=== PATIENT | female | born 1960 | race Caucasian/White ===

== ENCOUNTER → 2020-05-25 12:39 | Outpatient (CLI) | payer OTHER, SELFPAY ==
[2020-05-25] MEDS: COVID-19 VACC, Ad26(JANSSEN)/PF 0.5 ML IM (12:56)
== END ==
PROVIDERS: Visit Provider Internal Medicine
DX: Z23 Encounter for immunization (principal)
CPT/HCPCS: 0031A; 91303

== ENCOUNTER → 2020-08-05 10:58 | Outpatient (CLI) | payer OTHER, SELFPAY ==
--- NOTE | 2020-08-05 11:00 | DI.US.S_ITS ---
PROCEDURE: US PELVIC COMPLETE INDICATIONS: L Lower back/pelvic pain TECHNIQUE: Real-time scanning was performed of the pelvic organs, with image documentation. Additional endovaginal scanning was necessary due to incomplete visualization of the adnexal and endometrial structures by transabdominal scanning. COMPARISON: None. FINDINGS: Uterus: Prior hysterectomy. Ovaries: Normal ovaries measuring 2.0 x 0.8 x 1.4 cm on the right and 2.2 x 1.1 x 1.9 cm on the left. Other: No pathologic free abdominal or pelvic fluid. IMPRESSION: Limited exam demonstrating no source for pelvic pain. If pain persists with conservative management, consider pelvic CT or MRI. Dictated by: Wes ALMONTE Interpreted: Shellie Nuñez MD on 08/05/2020 at 14:21 Transcribed by: CHERI on 08/05/2020 at 14:22 Approved by: Shellie Nuñez M.D. on 08/05/2020 at 17:08
== END ==
PROVIDERS: PCP Specialist; Referring Provider Specialist; Visit Provider Specialist
DX: M54.5 Low back pain (principal); R10.2 Pelvic and perineal pain
CPT/HCPCS: 76830; 76856

== ENCOUNTER 2020-12-16 09:00 | Outpatient (RCR) | payer OTHER, SELFPAY ==
--- NOTE | 2020-10-13 15:44 | PT.OIE ---
Current Diagnoses Constipation, unspecified (10/13/20) Pain in left hip (10/13/20) Muscle weakness (generalized) (10/13/20) Other specified disorders of muscle (10/13/20) Pelvic and perineal pain (10/13/20) Past Surgical History Status post hysterectomy Visit Care Team Role Provider Type Maribell Seals MD Attending Provider Physician Family Provider Primary Care Provider Referring Provider Specialty: THERMOSTAT MAKER Address: [address] [place] [address], [id number] Email: [email or web address] Physical Therapy Initial Evaluation PT-OP-A Visit Information Start: 10/07/20 17:40 Freq: Status: Active Protocol: Document 10/13/20 08:12 LRN (Rec: 10/13/20 09:03 LRN [id number]) Out-Patient Physical Therapy Visit Information Visit Information Visit Type Initial Evaluation Visit Start Time 08:15 Visit Stop Time 09:01 Total Visit Minutes 46 Visit Number 1 Evaluation Information Evaluation Date 10/13/20 Precautions Precautions Per pt: Cancer history of R mastectomy with reconstructive surgery. Uterus removed PT-OP-B Current Condition Start: 10/07/20 17:40 Freq: Status: Active Protocol: Document 10/13/20 08:12 LRN (Rec: 10/13/20 09:03 LRN [id number]) Current Condition History of Current Condition Onset Date 06/2020 (4 months ago) Current Complaints Intermittent L LBP History of Current Condition Low L back pain and vaginal pain during sex, pain with deep thrust, and possibly some insertion. Pain in low back is intermittent, sometimes when bowels are full. 1 yr ago noticed pain with sex. No children 6 ectopic pregnancies. Exercises a couple times a week and random exercise. Prior Treatments and Tests None Developmental History Developmental History 6 ectopic pregnancies. 2018 -R Mastectomy, reconstruction in 2019 using adipose from lower abdomen, muscles not as strong. Treatment Goals Patient/Caregiver Goals Pt goal is sex without pain and stand all day at work and not have to sit down. 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 Sometimes had to sit to make it feel better. Current Functional Impairments (Reported) Functional Limitations- ADL's Sometimes had to sit at work due to LBP. Painful sex. Personal Factors Other Personal Factors That May Effect Per pt: Therapy/Recovery Cancer, R Mastectomy - 2018 with reconstructive surgery 2019. Uterus removed Hypothyroid controlled by medications. PT-OP-C Subjective Start: 10/07/20 17:40 Freq: Status: Active Protocol: Document 10/13/20 08:12 LRN (Rec: 10/13/20 09:03 LRN [id number]) Patient Questionnaires Pelvic Pain and Urgency/Frequency Patient Symptom Scale Pelvic Pain Score 14 OP-PT Pain Assessment Pain Assessment Grid Paper Pain Assessment Grid Completed Yes Location Pelvic Floor Pain Location Details Deep in vagina Intensity 3 Scale Used Numeric (0 - 10) Description Sharp Pain Duration During intercourse L LBP Pain Location Details LLB Intensity 3 Description Aching,Dull Frequency Intermittent Other Pain Alleviating Factors Sitting for a little bit PT-OP-F Manual Assessment Start: 10/07/20 17:40 Freq: Status: Active Protocol: Document 10/13/20 08:12 LRN (Rec: 10/13/20 09:03 LRN [id number]) Manual Assessments Soft Tissue Assessment Soft Tissue Mobility Assessment Decreased muscle tone of L gluteals Tender at L SIJ & L Sacral border. PT-OP-I Pelvic Floor Start: 10/07/20 17:40 Freq: Status: Active Protocol: Document 10/13/20 08:12 LRN (Rec: 10/13/20 09:03 LRN [id number]) Pelvic Floor Assessment Urine Pelvic Floor Surgery No Other Urinary Symptoms 8-10 times urinate per day Leaks Per Day None Bowel Bowel Surgery No Bowel Symptoms Constipation Other Bowel Symptoms If not taking probiotics have constipation. Bowel Movement Frequency 5-7x/week, from vacation didn' t have one for 5 days. [place] Stool Chart Type 1-7 4 Pelvic Clock Pelvic Clock 12-3 Tightness Pelvic Clock 3-6 Tightness PT-OP-J Posture/Palpation/Skin Start: 10/07/20 17:40 Freq: Status: Active Protocol: Document 10/13/20 08:12 LRN (Rec: 10/13/20 09:03 LRN [id number]) Posture Evaluation Position Standing T-Spine Posture Flattened Shoulder Posture (R) Elevated Pelvis Posture Anteriorly Tilted Weight Distribution Balanced Hip Posture (L) Neutral,(R) Neutral Ankle/Foot Posture (L) Neutral,(R) Neutral Foot Arch (L) Medium Arch,(R) Medium Arch Comments Posture Comments Decreased upper T/S curvature, outflare L ileum, level breasts. PT-OP-K Range of Motion Start: 10/07/20 17:40 Freq: Status: Active Protocol: Document 10/13/20 08:12 LRN (Rec: 10/13/20 09:03 LRN [id number]) Lumbar Spine Range of Motion Lumbar Spine Active Degrees Testing Position Standing Flexion 95 Extension 20 Rotation Left 50 Rotation Right 45 Lateral Flexion Left 15 Lateral Flexion Right 15 Comments Trunk flexion is with 70 deg's hip flexion Trunk ext is with 20 deg's hip extension Hip Goniometric Range of Motion Hip Right Passive Testing Position Supine Straight Leg Raise 100 Internal Rotation 60 External Rotation 50 Left Passive Testing Position Supine Straight Leg Raise 100 Internal Rotation 60 External Rotation 55 PT-OP-M Strength Start: 10/07/20 17:40 Freq: Status: Active Protocol: Document 10/13/20 08:12 LRN (Rec: 10/13/20 09:03 LRN [id number]) Trunk Strength Trunk Manual Muscle Testing Testing Position All positions during LE MMT Core Stabilization Weak R lateral trunk & R>L rotation. Hip Strength Hip Manual Muscle Testing Right Flexion (L2) 5 Normal Extension (S1) 5 Normal Abduction 5 Normal Adduction 3 Fair External Rotation 5 Normal Internal Rotation 5 Normal Left Flexion (L2) 5 Normal Extension (S1) 4 Good Abduction 5 Normal Adduction 5 Normal External Rotation 3 Fair Internal Rotation 5 Normal PT-OP-Q Treatments Start: 10/07/20 17:40 Freq: Status: Active Protocol: Document 10/13/20 08:12 LRN (Rec: 10/13/20 09:03 LRN [id number]) Self-Care/Home Management Treatment Education Patient Education Home Exercise Program Other Education Discussed results of evaluation, goals, and plan of care (POC). Pt agreeable to goals and POC. Issued, discussed, & reviewed Bladder Diary for pt to complete over the next 7 days. Explained how to fill out diary to include bowel movements. Activities Self-Care/Home Management Activities I/S pt in JUDY stretch. PT-OP-T Assessment and Plan Start: 10/07/20 17:40 Freq: Status: Active Protocol: Document 10/13/20 08:12 LRN (Rec: 10/13/20 09:03 N [id number]) Physical Therapy Assessment Rehab Potential Rehabilitation Potential Excellent Evaluation Complexity Number of Personal Factors/Comorbidities 1-2 Number of Body Systems Impaired 4 or More Clinical Presentation at Evaluation Evolving Impairments Impairments Activity Tolerance,Pain,ROM, Soft Tissue Mobility Goals Four Impairment Pain with intercourse. Short Term Goal (STG) Normalize soft tissue mobility of L abdominal region & improve trunk flexor mobility with pt independent on a self care stretch program and educated in modifications to positioning to minimize pain. STG Duration 12/02/20 Modern Languages Professor Goal (LTG) No pain with sexual intercourse. LTG Duration 01/11/21 Three Impairment Decreased hip strength (ER: 3/ 5 L, 5/5 R; Adduction 5/5 L, 3 /5 R) Short Term Goal (STG) Hip strength is generally 5/5 bilaterally STG Duration 12/02/20 Shelter Goal (LTG) Improved L hip/SIJ stability with decrease of L hip pain no greater than 1/10. LTG Duration 01/11/21 Two Impairment Intermittent L LBP/SIJ pain with prolonged standing (rated 3/10) Impairment Initial hip mobility: ER is 55 deg's left, 50 deg's right; IR 60 deg's bilaterally. Short Term Goal (STG) Pt will demonstrate improved hip ER mobility. STG Duration 12/02/20 Shelter Goal (LTG) Pt will be able to stand for long periods (like at work) and not have to sit down due to pain. LTG Duration 01/11/21 One Impairment Pt lacks an independent self care HEP. Short Term Goal (STG) Pt will be educated in self bowel massage. STG Duration 10/28/20 Shelter Goal (LTG) Pt will be independent in a self care HEP. LTG Duration 01/11/21 Assessment Summary Assessment Pt presents with no significant pain in superifical or deep PF muscles . She has pain at the L Obturator Internus on internal palpation and has tenderness and tightness on external palpation of her hip external rotators as well as at the L Sacral border and SIJ associated with her L LBP. Additionally, since her LBP is intermittent and noteable when she has constipation, her bowel function is probably involved. Her complaints of pelvic floor pain is with deep thrust during sexual intercourse, therefore possibly due to fascial pain at end of vaginal canal, as possible from her history of removal of her uterus. She also has abdominal fascial restrictions mainly on the left side of her upper and lower quadrant that may be contibuting to this pain. The pt will benefit from skilled physical therapy to improve soft tissue restrictions of the left low back, hip (OI) and abdomen ( upper and lower quadrant, L>R) in order to achieve above stated goals. Improvement in bowel function may also need to be addressed. Physical Therapy Plan Frequency and Duration Frequency of Treatment 1x/Week Plan of Care Start Date 10/13/20 Plan of Care End Date 01/11/21 Therapeutic Interventions Therapeutic Interventions Home Exercise Program,Joint Mobilizations,Manual Therapy, Neuromuscular Re-education, Patient/Caregiver Education, Self-Care/Home Management,Soft Tissue Mobilization, Therapeutic Activities, Therapeutic Exercises Modalities Cold Pack/Ice Massage,Hot Packs Next Visit Focus/Plan Next Note Type Treatment Note Next Visit Plan Assess bowel/bladder diary and make recommendations as appropriate. Review stretch to abdomen ( sphinx & progress to upward dog) and issue HEP. Initiate self care HEP of hip stretch (rotation L>R, gluts, piriformis), deep breathing and bowel massage. STM of abdomen, fascia of bladder, intestines. Discuss positioning for intercourse to minimize pain.
--- NOTE | 2020-10-14 15:42 | PT.OIE ---
Current Diagnoses Constipation, unspecified (10/13/20) Pain in left hip (10/13/20) Muscle weakness (generalized) (10/13/20) Other specified disorders of muscle (10/13/20) Pelvic and perineal pain (10/13/20) Past Surgical History Status post hysterectomy Visit Care Team Role Provider Type Maribell Seals MD Attending Provider Physician Family Provider Primary Care Provider Referring Provider Specialty: PM TECHNICIAN Address: [address] [place] [address], [address] Email: [email or web address] Physical Therapy Initial Evaluation PT-OP-A Visit Information Start: 10/07/20 17:40 Freq: Status: Active Protocol: Document 10/13/20 08:12 LRN (Rec: 10/13/20 09:03 LRN [id number]) Out-Patient Physical Therapy Visit Information Visit Information Visit Type Initial Evaluation Visit Start Time 08:15 Visit Stop Time 09:01 Total Visit Minutes 46 Visit Number 1 Evaluation Information Evaluation Date 10/13/20 Precautions Precautions Per pt: Cancer history of R mastectomy with reconstructive surgery. Uterus removed PT-OP-B Current Condition Start: 10/07/20 17:40 Freq: Status: Active Protocol: Document 10/13/20 08:12 LRN (Rec: 10/13/20 09:03 LRN [id number]) Current Condition History of Current Condition Onset Date 06/2020 (4 months ago) Current Complaints Intermittent L LBP History of Current Condition Low L back pain and vaginal pain during sex, pain with deep thrust, and possibly some insertion. Pain in low back is intermittent, sometimes when bowels are full. 1 yr ago noticed pain with sex. No children 6 ectopic pregnancies. Exercises a couple times a week and random exercise. Prior Treatments and Tests None Developmental History Developmental History 6 ectopic pregnancies. 2018 -R Mastectomy, reconstruction in 2019 using adipose from lower abdomen, muscles not as strong. Treatment Goals Patient/Caregiver Goals Pt goal is sex without pain and stand all day at work and not have to sit down. 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 Current Functional Impairments (Reported) Functional Limitations- ADL's Sometimes had to sit at work due to LBP. Painful sex. Personal Factors Other Personal Factors That May Effect Per pt: Therapy/Recovery Cancer, R Mastectomy - 2018 with reconstructive surgery 2019. Uterus removed Hypothyroid controlled by medications. PT-OP-C Subjective Start: 10/07/20 17:40 Freq: Status: Active Protocol: Document 10/13/20 08:12 LRN (Rec: 10/13/20 09:03 LRN [id number]) Patient Questionnaires Pelvic Pain and Urgency/Frequency Patient Symptom Scale Pelvic Pain Score 14 OP-PT Pain Assessment Pain Assessment Grid Paper Pain Assessment Grid Completed Yes Location Pelvic Floor Pain Location Details Deep in vagina Intensity 3 Scale Used Numeric (0 - 10) Description Sharp Pain Duration During intercourse L LBP Pain Location Details LLB Intensity 3 Description Aching,Dull Frequency Intermittent Other Pain Alleviating Factors Sitting for a little bit PT-OP-F Manual Assessment Start: 10/07/20 17:40 Freq: Status: Active Protocol: Document 10/13/20 08:12 LRN (Rec: 10/13/20 09:03 LRN [id number]) Manual Assessments Soft Tissue Assessment Soft Tissue Mobility Assessment Decreased muscle tone of L gluteals Tender at L SIJ & L Sacral border. PT-OP-I Pelvic Floor Start: 10/07/20 17:40 Freq: Status: Active Protocol: Document 10/13/20 08:12 LRN (Rec: 10/13/20 09:03 LRN [id number]) Pelvic Floor Assessment Urine Pelvic Floor Surgery No Other Urinary Symptoms 8-10 times urinate per day [place] Per Day None Bowel Bowel Surgery No Bowel Symptoms Constipation Other Bowel Symptoms If not taking probiotics have constipation. Bowel Movement Frequency 5-7x/week, from vacation didn' t have one for 5 days. [place] Stool Chart Type 1-7 4 Pelvic Clock Pelvic Clock 12-3 Tightness Pelvic Clock 3-6 Tightness PT-OP-J Posture/Palpation/Skin Start: 10/07/20 17:40 Freq: Status: Active Protocol: Document 10/13/20 08:12 LRN (Rec: 10/13/20 09:03 LRN [id number]) Posture Evaluation Position Standing T-Spine Posture Flattened Shoulder Posture (R) Elevated Pelvis Posture Anteriorly Tilted Weight Distribution Balanced Hip Posture (L) Neutral,(R) Neutral Ankle/Foot Posture (L) Neutral,(R) Neutral Foot Arch (L) Medium Arch,(R) Medium Arch Comments Posture Comments Decreased upper T/S curvature, outflare L ileum, level breasts. PT-OP-K Range of Motion Start: 10/07/20 17:40 Freq: Status: Active Protocol: Document 10/13/20 08:12 LRN (Rec: 10/13/20 09:03 LRN [id number]) Lumbar Spine Range of Motion Lumbar Spine Active Degrees Testing Position Standing Flexion 95 Extension 20 Rotation Left 50 Rotation Right 45 Lateral Flexion Left 15 Lateral Flexion Right 15 Comments Trunk flexion is with 70 deg's hip flexion Trunk ext is with 20 deg's hip extension Hip Goniometric Range of Motion Hip Right Passive Testing Position Supine Straight Leg Raise 100 Internal Rotation 60 External Rotation 50 Left Passive Testing Position Supine Straight Leg Raise 100 Internal Rotation 60 External Rotation 55 PT-OP-M Strength Start: 10/07/20 17:40 Freq: Status: Active Protocol: Document 10/13/20 08:12 LRN (Rec: 10/13/20 09:03 LRN [id number]) Trunk Strength Trunk Manual Muscle Testing Testing Position All positions during LE MMT Core Stabilization Weak R lateral trunk & R>L rotation. Hip Strength Hip Manual Muscle Testing Right Flexion (L2) 5 Normal Extension (S1) 5 Normal Abduction 5 Normal Adduction 3 Fair External Rotation 5 Normal Internal Rotation 5 Normal Left Flexion (L2) 5 Normal Extension (S1) 4 Good Abduction 5 Normal Adduction 5 Normal External Rotation 3 Fair Internal Rotation 5 Normal PT-OP-Q Treatments Start: 10/07/20 17:40 Freq: Status: Active Protocol: Document 10/13/20 08:12 LRN (Rec: 10/13/20 09:03 LRN [id number]) Self-Care/Home Management Treatment Education Patient Education Home Exercise Program Other Education Discussed results of evaluation, goals, and plan of care (POC). Pt agreeable to goals and POC. Issued, discussed, & reviewed Bladder Diary for pt to complete over the next 7 days. Explained how to fill out diary to include bowel movements. Activities Self-Care/Home Management Activities I/S pt in JUDY stretch. PT-OP-T Assessment and Plan Start: 10/07/20 17:40 Freq: Status: Active Protocol: Document 10/13/20 08:12 LRN (Rec: 10/13/20 09:03 N [id number]) Physical Therapy Assessment Rehab Potential Rehabilitation Potential Excellent Evaluation Complexity Number of Personal Factors/Comorbidities 1-2 Number of Body Systems Impaired 4 or More Clinical Presentation at Evaluation Evolving Impairments Impairments Activity Tolerance,Pain,ROM, Soft Tissue Mobility Goals Four Impairment Pain with intercourse. Short Term Goal (STG) Normalize soft tissue mobility of L abdominal region & improve trunk flexor mobility with pt independent on a self care stretch program and educated in modifications to positioning to minimize pain. STG Duration 12/02/20 Survey Associate Goal (LTG) No pain with sexual intercourse. LTG Duration 01/11/21 Three Impairment Decreased hip strength (ER: 3/ 5 L, 5/5 R; Adduction 5/5 L, 3 /5 R) Short Term Goal (STG) Hip strength is generally 5/5 bilaterally STG Duration 12/02/20 Group Home Goal (LTG) Improved L hip/SIJ stability with decrease of L hip pain no greater than 1/10. LTG Duration 01/11/21 Two Impairment Intermittent L LBP/SIJ pain with prolonged standing (rated 3/10) Impairment Initial hip mobility: ER is 55 deg's left, 50 deg's right; IR 60 deg's bilaterally. Short Term Goal (STG) Pt will demonstrate improved hip ER mobility. STG Duration 12/02/20 Group Home Goal (LTG) Pt will be able to stand for long periods (like at work) and not have to sit down due to pain. LTG Duration 01/11/21 One Impairment Pt lacks an independent self care HEP. Short Term Goal (STG) Pt will be educated in self bowel massage. STG Duration 10/28/20 Group Home Goal (LTG) Pt will be independent in a self care HEP. LTG Duration 01/11/21 Assessment Summary Assessment Pt presents with no significant pain in superifical or deep PF muscles . She has pain at the L Obturator Internus on internal palpation and has tenderness and tightness on external palpation of her hip external rotators as well as at the L Sacral border and SIJ associated with her L LBP. Additionally, since her LBP is intermittent and noteable when she has constipation, her bowel function is probably involved. Her complaints of pelvic floor pain is with deep thrust during sexual intercourse, therefore possibly due to fascial pain at end of vaginal canal, as possible from her history of removal of her uterus. She also has abdominal fascial restrictions mainly on the left side of her upper and lower quadrant that may be contibuting to this pain. The pt will benefit from skilled physical therapy to improve soft tissue restrictions of the left low back, hip (OI) and abdomen ( upper and lower quadrant, L>R) in order to achieve above stated goals. Improvement in bowel function may also need to be addressed. Physical Therapy Plan Frequency and Duration Frequency of Treatment 1x/Week Plan of Care Start Date 10/13/20 Plan of Care End Date 01/11/21 Therapeutic Interventions Therapeutic Interventions Home Exercise Program,Joint Mobilizations,Manual Therapy, Neuromuscular Re-education, Patient/Caregiver Education, Self-Care/Home Management,Soft Tissue Mobilization, Therapeutic Activities, Therapeutic Exercises Modalities Cold Pack/Ice Massage,Hot Packs Next Visit Focus/Plan Next Note Type Treatment Note Next Visit Plan Assess bowel/bladder diary and make recommendations as appropriate. Review stretch to abdomen ( sphinx & progress to upward dog) and issue HEP. Initiate self care HEP of hip stretch (rotation L>R, gluts, piriformis), deep breathing and bowel massage. STM of abdomen, fascia of bladder, intestines. Discuss positioning for intercourse to minimize pain.
--- NOTE | 2020-10-20 15:58 | PT.OTN ---
Current Diagnoses Constipation, unspecified (10/20/20) Pain in left hip (10/20/20) Muscle weakness (generalized) (10/20/20) Other specified disorders of muscle (10/20/20) Pelvic and perineal pain (10/20/20) Physical Therapy Treatment Note PT-OP-A Visit Information Start: 10/07/20 17:40 Freq: Status: Active Protocol: Document 10/20/20 08:19 LRN (Rec: 10/20/20 09:05 LRN [id number]) Out-Patient Physical Therapy Visit Information Visit Information Visit Type Treatment Note Visit Start Time 08:19 Visit Stop Time 08:59 Total Visit Minutes 40 Visit Number 2 Evaluation Information Evaluation Date 10/13/20 Precautions Precautions Per pt: Cancer history of R mastectomy with reconstructive surgery. Uterus removed PT-OP-B Current Condition Start: 10/07/20 17:40 Freq: Status: Active Protocol: Document 10/13/20 08:12 LRN (Rec: 10/13/20 09:03 LRN [id number]) Current Condition History of Current Condition Onset Date 06/2020 (4 months ago) Current Complaints Intermittent L LBP History of Current Condition Low L back pain and vaginal pain during sex, pain with deep thrust, and possibly some insertion. Pain in low back is intermittent, sometimes when bowels are full. 1 yr ago noticed pain with sex. No children 6 ectopic pregnancies. Exercises a couple times a week and random exercise. Prior Treatments and Tests None Developmental History Developmental History 6 ectopic pregnancies. 2018 -R Mastectomy, reconstruction in 2019 using adipose from lower abdomen, muscles not as strong. Treatment Goals Patient/Caregiver Goals Pt goal is sex without pain and stand all day at work and not have to sit down. 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 Sometimes had to sit to make it feel better. Current Functional Impairments (Reported) Functional Limitations- ADL's Sometimes had to sit at work due to LBP. Painful sex. Personal Factors Other Personal Factors That May Effect Per pt: Therapy/Recovery Cancer, R Mastectomy - 2018 with reconstructive surgery 2019. Uterus removed Hypothyroid controlled by medications. PT-OP-C Subjective Start: 10/07/20 17:40 Freq: Status: Active Protocol: Document 10/20/20 08:19 LRN (Rec: 10/20/20 09:05 LRN [id number]) OP-PT Subjective Patient Comments Patient Comments Did bladder diary. No pain today. Had sex 2 days ago and was uncomfortable. States one day her lower back was really bother her. States now she is back to a normal routine after her trip. PT-OP-F Manual Assessment Start: 10/07/20 17:40 Freq: Status: Active Protocol: Document 10/13/20 08:12 LRN (Rec: 10/13/20 09:03 LRN [id number]) Manual Assessments Soft Tissue Assessment Soft Tissue Mobility Assessment Decreased muscle tone of L gluteals Tender at L SIJ & L Sacral border. PT-OP-I Pelvic Floor Start: 10/07/20 17:40 Freq: Status: Active Protocol: Document 10/13/20 08:12 LRN (Rec: 10/13/20 09:03 LRN [id number]) Pelvic Floor Assessment Urine Pelvic Floor Surgery No Other Urinary Symptoms 8-10 times urinate per day Leaks Per Day None Bowel Bowel Surgery No Bowel Symptoms Constipation Other Bowel Symptoms If not taking probiotics have constipation. Bowel Movement Frequency 5-7x/week, from vacation didn' t have one for 5 days. [place] Stool Chart Type 1-7 4 Pelvic Clock Pelvic Clock 12-3 Tightness Pelvic Clock 3-6 Tightness PT-OP-J Posture/Palpation/Skin Start: 10/07/20 17:40 Freq: Status: Active Protocol: Document 10/13/20 08:12 LRN (Rec: 10/13/20 09:03 LRN [id number]) Posture Evaluation Position Standing T-Spine Posture Flattened Shoulder Posture (R) Elevated Pelvis Posture Anteriorly Tilted Weight Distribution Balanced Hip Posture (L) Neutral,(R) Neutral Ankle/Foot Posture (L) Neutral,(R) Neutral Foot Arch (L) Medium Arch,(R) Medium Arch Comments Posture Comments Decreased upper T/S curvature, outflare L ileum, level breasts. PT-OP-K Range of Motion Start: 10/07/20 17:40 Freq: Status: Active Protocol: Document 10/13/20 08:12 LRN (Rec: 10/13/20 09:03 LRN [id number]) Lumbar Spine Range of Motion Lumbar Spine Active Degrees Testing Position Standing Flexion 95 Extension 20 Rotation Left 50 Rotation Right 45 Lateral Flexion Left 15 Lateral Flexion Right 15 Comments Trunk flexion is with 70 deg's hip flexion Trunk ext is with 20 deg's hip extension Hip Goniometric Range of Motion Hip Right Passive Testing Position Supine Straight Leg Raise 100 Internal Rotation 60 External Rotation 50 Left Passive Testing Position Supine Straight Leg Raise 100 Internal Rotation 60 External Rotation 55 PT-OP-M Strength Start: 10/07/20 17:40 Freq: Status: Active Protocol: Document 10/13/20 08:12 LRN (Rec: 10/13/20 09:03 LRN [id number]) Trunk Strength Trunk Manual Muscle Testing Testing Position All positions during LE MMT Core Stabilization Weak R lateral trunk & R>L rotation. Hip Strength Hip Manual Muscle Testing Right Flexion (L2) 5 Normal Extension (S1) 5 Normal Abduction 5 Normal Adduction 3 Fair External Rotation 5 Normal Internal Rotation 5 Normal Left Flexion (L2) 5 Normal Extension (S1) 4 Good Abduction 5 Normal Adduction 5 Normal External Rotation 3 Fair Internal Rotation 5 Normal PT-OP-Q Treatments Start: 10/07/20 17:40 Freq: Status: Active Protocol: Document 10/20/20 08:19 LRN (Rec: 10/20/20 09:05 LRN [id number]) Therapeutic Exercises Supine Exercises KTC stretch Supine Exercise Name KTC stretch Side bilateral Reps/Minutes 60 stretch Hip ER stretch Supine Exercise Name Lateral hip stretch Side bilateral Reps/Minutes 60 stretch: 2x left, 1x right Comments Extra time needed for training with Physical & v cuing. Piriformis stretch Supine Exercise Name Knee to opposite shoulder & pt also shown cross over leg stretch. Side bilateral Reps/Minutes 60 stretch: 2x left, 1x right Comments Extra time needed for training with Physical & v cuing. Prone Exercises Abdominal stretch Prone Exercise Name JUDY Reps/Minutes 60 x 2 Sitting Exercises Piriformis stretch Sitting Exercise Name Piriformis stretch Side bilateral Reps/Minutes 60 stretch: 2x left, 1x right Manual Therapy Treatment Soft Tissue Mobilization Abdomen Body Location Abdomen/Bladder region Mobilization Type Sustained Pressure Intensity/Depth Moderate Body Position Supine Comments Decreased tissue mobility of abdomen with L>R. No c/o of tenderness at L SIJ. Self-Care/Home Management Treatment Education Other Education Reviewed and discussed results of bladder diary. Discussed & educated pt in sexual intercourse positioning for best cervix/bladder positioning. Activities Self-Care/Home Management Activities Issued & reviewed HEP: Piriformis stretch (2 ways - knee to opposite shoulder and cross legged knee to chest), Lateral hip stretch, sitting crossing ankle over knee, SKTC , JUDY) PT-OP-T Assessment and Plan Start: 10/07/20 17:40 Freq: Status: Active Protocol: Document 10/20/20 08:19 LRN (Rec: 10/20/20 09:05 LRN [id number]) Physical Therapy Assessment Goals Four Impairment Pain with intercourse. Short Term Goal (STG) Normalize soft tissue mobility of L abdominal region & improve trunk flexor mobility with pt independent on a self care stretch program and educated in modifications to positioning to minimize pain. (10/20/20: Pt educated in modifications to positioning to minimize pain, and started on HEP of abdominal and trunk flexor mobility ex's) STG Duration 12/02/20 (10/20/20: Progressing towards norm STM, HEP issued, pt educated) Supervisor [employer] Shop Goal (LTG) No pain with sexual intercourse. LTG Duration 01/11/21 Three Impairment Decreased hip strength (ER: 3/ 5 L, 5/5 R; Adduction 5/5 L, 3 /5 R) Short Term Goal (STG) Hip strength is generally 5/5 bilaterally STG Duration 12/02/20 Supervisor [employer] Shop Goal (LTG) Improved L hip/SIJ stability with decrease of L hip pain no greater than 1/10. LTG Duration 01/11/21 Two Impairment Intermittent L LBP/SIJ pain with prolonged standing (rated 3/10) Impairment Initial hip mobility: ER is 55 deg's left, 50 deg's right; IR 60 deg's bilaterally. Short Term Goal (STG) Pt will demonstrate improved hip ER mobility. STG Duration 12/02/20 Supervisor [employer] Shop Goal (LTG) Pt will be able to stand for long periods (like at work) and not have to sit down due to pain. LTG Duration 01/11/21 One Impairment Pt lacks an independent self care HEP. Short Term Goal (STG) Pt will be educated in self bowel massage. STG Duration 10/28/20 Supervisor Core Shop Goal (LTG) Pt will be independent in a self care HEP. LTG Duration 01/11/21 (10/20/20: Progressed ) Progress Towards Goals Progress Comments Progressed HEP. Assessment Summary Assessment Pt is very tight in abdominal region contributing to interabdominal pressure with ex causing drop of organs and pain with intercourse (on thrust). SIJ and lateral sacral border pain with prolonged sitting may be associated to tightness of OI/ hip ER's/rectus abdominus. She has fascial restrictions from previous surgery for mastectomy (adipose taken from lower abdomen). Pt may be improperly exercising causing valsalva type pressure in abdomen during exercise. Physical Therapy Plan Frequency and Duration Frequency of Treatment 1x/Week Plan of Care Start Date 10/13/20 Plan of Care End Date 01/11/21 Next Visit Focus/Plan Next Note Type Treatment Note Next Visit Plan After 2 weeks of pt on HEP, assess positioning, drop of organs, causing end thrust pain with intercourse. Add trunk rot stretch and lower abdominal ex, review planks. Progress to upward dog abdominal stretch (modify HEP if needed). Review self care HEP of hip stretch (rotation L>R, gluts, piriformis), deep breathing Add bowel massage. STM of abdomen, fascia of bladder, intestines. LB/SIJ/Pelvic stabilization.
--- NOTE | 2020-11-03 17:18 | PT.OTN ---
Current Diagnoses Constipation, unspecified (11/03/20) Pain in left hip (11/03/20) Muscle weakness (generalized) (11/03/20) Other specified disorders of muscle (11/03/20) Pelvic and perineal pain (11/03/20) Physical Therapy Treatment Note PT-OP-A Visit Information Start: 10/07/20 17:40 Freq: Status: Active Protocol: Document 11/03/20 09:54 LRN (Rec: 11/03/20 10:37 LRN [id number]) Out-Patient Physical Therapy Visit Information Visit Information Visit Type Treatment Note Visit Start Time 09:54 Visit Stop Time 10:34 Total Visit Minutes 40 Visit Number 3 Evaluation Information Evaluation Date 10/13/20 Precautions Precautions Per pt: Cancer history of R mastectomy with reconstructive surgery. Uterus removed PT-OP-B Current Condition Start: 10/07/20 17:40 Freq: Status: Active Protocol: Document 10/13/20 08:12 LRN (Rec: 10/13/20 09:03 LRN [id number]) Current Condition History of Current Condition Onset Date 06/2020 (4 months ago) Current Complaints Intermittent L LBP History of Current Condition Low L back pain and vaginal pain during sex, pain with deep thrust, and possibly some insertion. Pain in low back is intermittent, sometimes when bowels are full. 1 yr ago noticed pain with sex. No children 6 ectopic pregnancies. Exercises a couple times a week and random exercise. Prior Treatments and Tests None Developmental History Developmental History 6 ectopic pregnancies. 2018 -R Mastectomy, reconstruction in 2019 using adipose from lower abdomen, muscles not as strong. Treatment Goals Patient/Caregiver Goals Pt goal is sex without pain and stand all day at work and not have to sit down. 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 Current Functional Impairments (Reported) Functional Limitations- ADL's Sometimes had to sit at work due to LBP. Painful sex. Personal Factors Other Personal Factors That May Effect Per pt: Therapy/Recovery Cancer, R Mastectomy - 2018 with reconstructive surgery 2019. Uterus removed Hypothyroid controlled by medications. PT-OP-C Subjective Start: 10/07/20 17:40 Freq: Status: Active Protocol: Document 11/03/20 09:54 LRN (Rec: 11/03/20 10:37 LRN [id number]) OP-PT Subjective Patient Comments Patient Comments Haven't felt the pain in L LB for awhile but feeling it this morning. PT-OP-F Manual Assessment Start: 10/07/20 17:40 Freq: Status: Active Protocol: Document 10/13/20 08:12 LRN (Rec: 10/13/20 09:03 LRN [id number]) Manual Assessments Soft Tissue Assessment Soft Tissue Mobility Assessment Decreased muscle tone of L gluteals Tender at L SIJ & L Sacral border. PT-OP-I Pelvic Floor Start: 10/07/20 17:40 Freq: Status: Active Protocol: Document 10/13/20 08:12 LRN (Rec: 10/13/20 09:03 LRN [id number]) Pelvic Floor Assessment Urine Pelvic Floor Surgery No Other Urinary Symptoms 8-10 times urinate per day Leaks Per Day None Bowel Bowel Surgery No Bowel Symptoms Constipation Other Bowel Symptoms If not taking probiotics have constipation. Bowel Movement Frequency 5-7x/week, from vacation didn' t have one for 5 days. [place] Stool Chart Type 1-7 4 Pelvic Clock Pelvic Clock 12-3 Tightness Pelvic Clock 3-6 Tightness PT-OP-J Posture/Palpation/Skin Start: 10/07/20 17:40 Freq: Status: Active Protocol: Document 10/13/20 08:12 LRN (Rec: 10/13/20 09:03 LRN [id number]) Posture Evaluation Position Standing T-Spine Posture Flattened Shoulder Posture (R) Elevated Pelvis Posture Anteriorly Tilted Weight Distribution Balanced Hip Posture (L) Neutral,(R) Neutral Ankle/Foot Posture (L) Neutral,(R) Neutral Foot Arch (L) Medium Arch,(R) Medium Arch Comments Posture Comments Decreased upper T/S curvature, outflare L ileum, level breasts. PT-OP-K Range of Motion Start: 10/07/20 17:40 Freq: Status: Active Protocol: Document 10/13/20 08:12 LRN (Rec: 10/13/20 09:03 LRN [id number]) Lumbar Spine Range of Motion Lumbar Spine Active Degrees Testing Position Standing Flexion 95 Extension 20 Rotation Left 50 Rotation Right 45 Lateral Flexion Left 15 Lateral Flexion Right 15 Comments Trunk flexion is with 70 deg's hip flexion Trunk ext is with 20 deg's hip extension Hip Goniometric Range of Motion Hip Right Passive Testing Position Supine Straight Leg Raise 100 Internal Rotation 60 External Rotation 50 Left Passive Testing Position Supine Straight Leg Raise 100 Internal Rotation 60 External Rotation 55 PT-OP-M Strength Start: 10/07/20 17:40 Freq: Status: Active Protocol: Document 10/13/20 08:12 LRN (Rec: 10/13/20 09:03 LRN [id number]) Trunk Strength Trunk Manual Muscle Testing Testing Position All positions during LE MMT Core Stabilization Weak R lateral trunk & R>L rotation. Hip Strength Hip Manual Muscle Testing Right Flexion (L2) 5 Normal Extension (S1) 5 Normal Abduction 5 Normal Adduction 3 Fair External Rotation 5 Normal Internal Rotation 5 Normal Left Flexion (L2) 5 Normal Extension (S1) 4 Good Abduction 5 Normal Adduction 5 Normal External Rotation 3 Fair Internal Rotation 5 Normal PT-OP-Q Treatments Start: 10/07/20 17:40 Freq: Status: Active Protocol: Document 11/03/20 09:54 LRN (Rec: 11/03/20 10:37 LRN [id number]) Therapeutic Exercises Supine Exercises Self R oblique manual stretch Supine Exercise Name Self manual Oblique stretch Side right Manual Therapy Treatment Soft Tissue Mobilization PSIS/Ischial tub Body Location L SIJ/PSIS/Ischial Tuberosity Mobilization Type Myofascial Release,Sustained Pressure Intensity/Depth Moderate Body Position Supine & Prone Sacrum Body Location R Sacral Sulcus, R Sacral border, YOLANDA Mobilization Type Myofascial Release,Sustained Pressure Intensity/Depth Moderate Body Position Supine & Prone Abdomen Body Location Abdomen/Bladder region and R Oblique stretching Mobilization Type Myofascial Release,Sustained Pressure Intensity/Depth Moderate Body Position Supine Comments Decreased tissue mobility of abdomen with L>R. No c/o of tenderness at L SIJ. Self-Care/Home Management Treatment Activities Self-Care/Home Management Activities I/S in self manual oblique stretch with focus on R side PT-OP-T Assessment and Plan Start: 10/07/20 17:40 Freq: Status: Active Protocol: Document 11/03/20 09:54 LRN (Rec: 11/03/20 10:37 LRN [id number]) Physical Therapy Assessment Goals Four Impairment Pain with intercourse. Short Term Goal (STG) Normalize soft tissue mobility of L abdominal region & improve trunk flexor mobility with pt independent on a self care stretch program and educated in modifications to positioning to minimize pain. (10/20/20: Pt educated in modifications to positioning to minimize pain, and started on HEP of abdominal and trunk flexor mobility ex's) (11/03/20: HEP: self trunk rotation manual stretch) STG Duration 12/02/20 (11/03/20: Progressing towards norm STM) Fdc Goal (LTG) No pain with sexual intercourse. LTG Duration 01/11/21 Three Impairment Decreased hip strength (ER: 3/ 5 L, 5/5 R; Adduction 5/5 L, 3 /5 R) Short Term Goal (STG) Hip strength is generally 5/5 bilaterally STG Duration 12/02/20 Accounting Clerk Goal (LTG) Improved L hip/SIJ stability with decrease of L hip pain no greater than 1/10. LTG Duration 01/11/21 Two Impairment Intermittent L LBP/SIJ pain with prolonged standing (rated 3/10) Impairment Initial hip mobility: ER is 55 deg's left, 50 deg's right; IR 60 deg's bilaterally. Short Term Goal (STG) Pt will demonstrate improved hip ER mobility. STG Duration 12/02/20 Accounting Clerk Goal (LTG) Pt will be able to stand for long periods (like at work) and not have to sit down due to pain. LTG Duration 01/11/21 One Impairment Pt lacks an independent self care HEP. Short Term Goal (STG) Pt will be educated in self bowel massage. STG Duration 10/28/20 Fdc Goal (LTG) Pt will be independent in a self care HEP. LTG Duration 01/11/21 (11/03/20: Progressed) Progress Towards Goals Progress Comments Progressed HEP No L LBP after treatment. Assessment Summary Assessment Sacrum is in R rotation; decreased mobility of R Sacral sulcus (PA) and R sacral border (inferior), sacrum to the R (not common pattern). Decreased mobility of abdominal plasty scar and R obliques. After mobilization of Sacrum, pelvis, scar, obliques the pt reported no L LBP. Physical Therapy Plan Frequency and Duration Frequency of Treatment 1x/Week Plan of Care Start Date 10/13/20 Plan of Care End Date 01/11/21 Next Visit Focus/Plan Next Note Type Treatment Note Next Visit Plan Recheck Sacrum (2 step correction) & Ischium/Ilium rebalancing. Intravaginal Protocol & lower abdominal techniques. Assess PFM, Bladder, Cervix for drop of organs, causing end thrust pain with intercourse. PFM w/ pelvic bones externally & EAS, review self care scar and oblique mobs. Core activation (lower abdominal ex, review planks). Add trunk ?R rot active stretch. Progress to upward dog abdominal stretch (modify HEP if needed). Review self care HEP of hip stretch (rotation L>R, gluts, piriformis), deep breathing Add bowel massage. STM of abdomen, fascia of bladder, intestines. LB/SIJ/Pelvic stabilization, review planks.
--- NOTE | 2020-11-10 17:07 | PT.OTN ---
Current Diagnoses Constipation, unspecified (11/10/20) Pain in left hip (11/10/20) Muscle weakness (generalized) (11/10/20) Other specified disorders of muscle (11/10/20) Pelvic and perineal pain (11/10/20) Physical Therapy Treatment Note PT-OP-A Visit Information Start: 10/07/20 17:40 Freq: Status: Active Protocol: Document 11/10/20 08:09 LRN (Rec: 11/10/20 09:06 LRN [id number]) Out-Patient Physical Therapy Visit Information Visit Information Visit Type Treatment Note Visit Start Time 08:18 Visit Stop Time 09:04 Total Visit Minutes 46 Visit Number 4 Evaluation Information Evaluation Date 10/13/20 Precautions Precautions Per pt: Cancer history of R mastectomy with reconstructive surgery. Uterus removed PT-OP-B Current Condition Start: 10/07/20 17:40 Freq: Status: Active Protocol: Document 10/13/20 08:12 LRN (Rec: 10/13/20 09:03 LRN [id number]) Current Condition History of Current Condition Onset Date 06/2020 (4 months ago) Current Complaints Intermittent L LBP History of Current Condition Low L back pain and vaginal pain during sex, pain with deep thrust, and possibly some insertion. Pain in low back is intermittent, sometimes when bowels are full. 1 yr ago noticed pain with sex. No children 6 ectopic pregnancies. Exercises a couple times a week and random exercise. Prior Treatments and Tests None Developmental History Developmental History 6 ectopic pregnancies. 2018 -R Mastectomy, reconstruction in 2019 using adipose from lower abdomen, muscles not as strong. Treatment Goals Patient/Caregiver Goals Pt goal is sex without pain and stand all day at work and not have to sit down. 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 Sometimes had to sit to make it feel better. Current Functional Impairments (Reported) Functional Limitations- ADL's Sometimes had to sit at work due to LBP. Painful sex. Personal Factors Other Personal Factors That May Effect Per pt: Therapy/Recovery Cancer, R Mastectomy - 2018 with reconstructive surgery 2019. Uterus removed Hypothyroid controlled by medications. PT-OP-C Subjective Start: 10/07/20 17:40 Freq: Status: Active Protocol: Document 11/10/20 08:09 LRN (Rec: 11/10/20 09:06 LRN [id number]) OP-PT Subjective Patient Comments Patient Comments Feeling a little more low back pain after moving son. PT-OP-F Manual Assessment Start: 10/07/20 17:40 Freq: Status: Active Protocol: Document 10/13/20 08:12 LRN (Rec: 10/13/20 09:03 LRN [id number]) Manual Assessments Soft Tissue Assessment Soft Tissue Mobility Assessment Decreased muscle tone of L gluteals Tender at L SIJ & L Sacral border. PT-OP-I Pelvic Floor Start: 10/07/20 17:40 Freq: Status: Active Protocol: Document 10/13/20 08:12 LRN (Rec: 10/13/20 09:03 LRN [id number]) Pelvic Floor Assessment Urine Pelvic Floor Surgery No Other Urinary Symptoms 8-10 times urinate per day [place] Per Day None Bowel Bowel Surgery No Bowel Symptoms Constipation Other Bowel Symptoms If not taking probiotics have constipation. Bowel Movement Frequency 5-7x/week, from vacation didn' t have one for 5 days. [place] Stool Chart Type 1-7 4 Pelvic Clock Pelvic Clock 12-3 Tightness Pelvic Clock 3-6 Tightness PT-OP-J Posture/Palpation/Skin Start: 10/07/20 17:40 Freq: Status: Active Protocol: Document 10/13/20 08:12 LRN (Rec: 10/13/20 09:03 LRN [id number]) Posture Evaluation Position Standing T-Spine Posture Flattened Shoulder Posture (R) Elevated Pelvis Posture Anteriorly Tilted Weight Distribution Balanced Hip Posture (L) Neutral,(R) Neutral Ankle/Foot Posture (L) Neutral,(R) Neutral Foot Arch (L) Medium Arch,(R) Medium Arch Comments Posture Comments Decreased upper T/S curvature, outflare L ileum, level breasts. PT-OP-K Range of Motion Start: 10/07/20 17:40 Freq: Status: Active Protocol: Document 10/13/20 08:12 LRN (Rec: 10/13/20 09:03 LRN [id number]) Lumbar Spine Range of Motion Lumbar Spine Active Degrees Testing Position Standing Flexion 95 Extension 20 Rotation Left 50 Rotation Right 45 Lateral Flexion Left 15 Lateral Flexion Right 15 Comments Trunk flexion is with 70 deg's hip flexion Trunk ext is with 20 deg's hip extension Hip Goniometric Range of Motion Hip Right Passive Testing Position Supine Straight Leg Raise 100 Internal Rotation 60 External Rotation 50 Left Passive Testing Position Supine Straight Leg Raise 100 Internal Rotation 60 External Rotation 55 PT-OP-M Strength Start: 10/07/20 17:40 Freq: Status: Active Protocol: Document 10/13/20 08:12 LRN (Rec: 10/13/20 09:03 LRN [id number]) Trunk Strength Trunk Manual Muscle Testing Testing Position All positions during LE MMT Core Stabilization Weak R lateral trunk & R>L rotation. Hip Strength Hip Manual Muscle Testing Right Flexion (L2) 5 Normal Extension (S1) 5 Normal Abduction 5 Normal Adduction 3 Fair External Rotation 5 Normal Internal Rotation 5 Normal Left Flexion (L2) 5 Normal Extension (S1) 4 Good Abduction 5 Normal Adduction 5 Normal External Rotation 3 Fair Internal Rotation 5 Normal PT-OP-Q Treatments Start: 10/07/20 17:40 Freq: Status: Active Protocol: Document 11/10/20 08:09 LRN (Rec: 11/10/20 09:06 LRN [id number]) Manual Therapy Treatment Soft Tissue Mobilization PSIS/Ischial tub Body Location L SIJ/PSIS/Ischial Tuberosity Mobilization Type Myofascial Release,Sustained Pressure Intensity/Depth Moderate Body Position Supine & Prone Sacrum Body Location R Sacral Sulcus, R Sacral border, YOLANDA Mobilization Type Myofascial Release,Sustained Pressure Intensity/Depth Moderate Body Position Supine & Prone Abdomen Body Location Abdomen/Bladder region and R Oblique stretching Mobilization Type Myofascial Release,Sustained Pressure Intensity/Depth Moderate Body Position Supine Comments Decreased tissue mobility of abdomen with L>R. No c/o of tenderness at L SIJ. Self-Care/Home Management Treatment Activities Self-Care/Home Management Activities Issued I/S, reviewed and issued handout for abdominal massage. PT-OP-T Assessment and Plan Start: 10/07/20 17:40 Freq: Status: Active Protocol: Document 11/10/20 08:09 LRN (Rec: 11/10/20 09:06 LRN [id number]) Physical Therapy Assessment Goals Four Impairment Pain with intercourse. Short Term Goal (STG) Normalize soft tissue mobility of L abdominal region & improve trunk flexor mobility with pt independent on a self care stretch program and educated in modifications to positioning to minimize pain. (10/20/20: Pt educated in modifications to positioning to minimize pain, and started on HEP of abdominal and trunk flexor mobility ex's) (11/03/20: HEP: self trunk rotation manual stretch) STG Duration 12/02/20 (11/10/20: Progressing towards norm STM) Jail Goal (LTG) No pain with sexual intercourse. LTG Duration 01/11/21 Three Impairment Decreased hip strength (ER: 3/ 5 L, 5/5 R; Adduction 5/5 L, 3 /5 R) Short Term Goal (STG) Hip strength is generally 5/5 bilaterally STG Duration 12/02/20 Jetting Machine Operator Goal (LTG) Improved L hip/SIJ stability with decrease of L hip pain no greater than 1/10. LTG Duration 01/11/21 Two Impairment Intermittent L LBP/SIJ pain with prolonged standing (rated 3/10) Impairment Initial hip mobility: ER is 55 deg's left, 50 deg's right; IR 60 deg's bilaterally. Short Term Goal (STG) Pt will demonstrate improved hip ER mobility. STG Duration 12/02/20 Jail Goal (LTG) Pt will be able to stand for long periods (like at work) and not have to sit down due to pain. LTG Duration 01/11/21 One Impairment Pt lacks an independent self care HEP. Short Term Goal (STG) Pt will be educated in self bowel massage. STG Duration 10/28/20 (11/10/20: MET GOAL) Jetting Machine Operator Goal (LTG) Pt will be independent in a self care HEP. LTG Duration 01/11/21 (11/03/20: Progressed) Assessment Summary Assessment Sacrum started in R rot and decreased mobility of R sacral sulcus, Coccyx/Sacrum in L SB . Was able to rebalance Ischium/Ilium at end of treatment. Good mob of R lower abdominal fascia and cervix region from bladder. No LBP at end of treatment. Physical Therapy Plan Frequency and Duration Frequency of Treatment 1x/Week Plan of Care Start Date 10/13/20 Plan of Care End Date 01/11/21 Next Visit Focus/Plan Next Note Type Treatment Note Next Visit Plan Check if needed review of bowel massage, oblique self stretch or scar mobs. Recheck Sacrum (2 step correction) & Ischium/Ilium rebalancing. Intravaginal Protocol & lower abdominal techniques. Assess PFM, Bladder, Cervix for drop of organs, causing end thrust pain with intercourse. PFM w /pelvic bones externally & EAS . Core activation (lower abdominal ex, review planks). Add trunk ?R rot active stretch. Progress to upward dog abdominal stretch (modify HEP if needed). Review self care HEP of hip stretch (rotation L>R, gluts, piriformis), deep breathing. Add HEP: hip strengthening ER & AD. STM of abdomen, fascia of bladder, intestines. LB/SIJ/Pelvic stabilization, review planks.
--- NOTE | 2020-11-18 16:26 | PT.OTN ---
Current Diagnoses Constipation, unspecified (11/18/20) Pain in left hip (11/18/20) Muscle weakness (generalized) (11/18/20) Other specified disorders of muscle (11/18/20) Pelvic and perineal pain (11/18/20) Physical Therapy Treatment Note PT-OP-A Visit Information Start: 10/07/20 17:40 Freq: Status: Active Protocol: Document 11/18/20 15:03 LRN (Rec: 11/18/20 16:03 LRN [id number]) Out-Patient Physical Therapy Visit Information Visit Information Visit Type Treatment Note Visit Start Time 15:03 Visit Stop Time 15:43 Total Visit Minutes 40 Visit Number 5 Evaluation Information Evaluation Date 10/13/20 Precautions Precautions Per pt: Cancer history of R mastectomy with reconstructive surgery. Uterus removed PT-OP-B Current Condition Start: 10/07/20 17:40 Freq: Status: Active Protocol: Document 10/13/20 08:12 LRN (Rec: 10/13/20 09:03 LRN [id number]) Current Condition History of Current Condition Onset Date 06/2020 (4 months ago) Current Complaints Intermittent L LBP History of Current Condition Low L back pain and vaginal pain during sex, pain with deep thrust, and possibly some insertion. Pain in low back is intermittent, sometimes when bowels are full. 1 yr ago noticed pain with sex. No children 6 ectopic pregnancies. Exercises a couple times a week and random exercise. Prior Treatments and Tests None Developmental History Developmental History 6 ectopic pregnancies. 2018 -R Mastectomy, reconstruction in 2019 using adipose from lower abdomen, muscles not as strong. Treatment Goals Patient/Caregiver Goals Pt goal is sex without pain and stand all day at work and not have to sit down. 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 Current Functional Impairments (Reported) Functional Limitations- ADL's Sometimes had to sit at work due to LBP. Painful sex. Personal Factors Other Personal Factors That May Effect Per pt: Therapy/Recovery Cancer, R Mastectomy - 2018 with reconstructive surgery 2019. Uterus removed Hypothyroid controlled by medications. PT-OP-C Subjective Start: 10/07/20 17:40 Freq: Status: Active Protocol: Document 11/18/20 15:03 LRN (Rec: 11/18/20 16:03 LRN [id number]) OP-PT Subjective Patient Comments Patient Comments Doing pretty good. Having difficulty stretching own skin in abdomen. L hip pain is intermittent, had it a couple days ago PT-OP-F Manual Assessment Start: 10/07/20 17:40 Freq: Status: Active Protocol: Document 10/13/20 08:12 LRN (Rec: 10/13/20 09:03 LRN [id number]) Manual Assessments Soft Tissue Assessment Soft Tissue Mobility Assessment Decreased muscle tone of L gluteals Tender at L SIJ & L Sacral border. PT-OP-I Pelvic Floor Start: 10/07/20 17:40 Freq: Status: Active Protocol: Document 10/13/20 08:12 LRN (Rec: 10/13/20 09:03 LRN [id number]) Pelvic Floor Assessment Urine Pelvic Floor Surgery No Other Urinary Symptoms 8-10 times urinate per day [place] Per Day None Bowel Bowel Surgery No Bowel Symptoms Constipation Other Bowel Symptoms If not taking probiotics have constipation. Bowel Movement Frequency 5-7x/week, from vacation didn' t have one for 5 days. [place] Stool Chart Type 1-7 4 Pelvic Clock Pelvic Clock 12-3 Tightness Pelvic Clock 3-6 Tightness PT-OP-J Posture/Palpation/Skin Start: 10/07/20 17:40 Freq: Status: Active Protocol: Document 10/13/20 08:12 LRN (Rec: 10/13/20 09:03 LRN [id number]) Posture Evaluation Position Standing T-Spine Posture Flattened Shoulder Posture (R) Elevated Pelvis Posture Anteriorly Tilted Weight Distribution Balanced Hip Posture (L) Neutral,(R) Neutral Ankle/Foot Posture (L) Neutral,(R) Neutral Foot Arch (L) Medium Arch,(R) Medium Arch Comments Posture Comments Decreased upper T/S curvature, outflare L ileum, level breasts. PT-OP-K Range of Motion Start: 10/07/20 17:40 Freq: Status: Active Protocol: Document 10/13/20 08:12 LRN (Rec: 10/13/20 09:03 LRN [id number]) Lumbar Spine Range of Motion Lumbar Spine Active Degrees Testing Position Standing Flexion 95 Extension 20 Rotation Left 50 Rotation Right 45 Lateral Flexion Left 15 Lateral Flexion Right 15 Comments Trunk flexion is with 70 deg's hip flexion Trunk ext is with 20 deg's hip extension Hip Goniometric Range of Motion Hip Right Passive Testing Position Supine Straight Leg Raise 100 Internal Rotation 60 External Rotation 50 Left Passive Testing Position Supine Straight Leg Raise 100 Internal Rotation 60 External Rotation 55 PT-OP-M Strength Start: 10/07/20 17:40 Freq: Status: Active Protocol: Document 10/13/20 08:12 LRN (Rec: 10/13/20 09:03 LRN [id number]) Trunk Strength Trunk Manual Muscle Testing Testing Position All positions during LE MMT Core Stabilization Weak R lateral trunk & R>L rotation. Hip Strength Hip Manual Muscle Testing Right Flexion (L2) 5 Normal Extension (S1) 5 Normal Abduction 5 Normal Adduction 3 Fair External Rotation 5 Normal Internal Rotation 5 Normal Left Flexion (L2) 5 Normal Extension (S1) 4 Good Abduction 5 Normal Adduction 5 Normal External Rotation 3 Fair Internal Rotation 5 Normal PT-OP-Q Treatments Start: 10/07/20 17:40 Freq: Status: Active Protocol: Document 11/18/20 15:03 LRN (Rec: 11/18/20 16:03 LRN [id number]) Therapeutic Exercises Supine Exercises Hip ER stretch Supine Exercise Name Lateral hip stretch Side bilateral Reps/Minutes 60 stretch: 2x left, 1x right Comments Extra time needed for training with Physical & v cuing. Piriformis stretch Supine Exercise Name Knee to opposite shoulder & pt also shown cross over leg stretch. Side bilateral Reps/Minutes 60 stretch: 2x left, 1x right Comments Extra time needed for training with Physical & v cuing. Prone Exercises Abdominal stretch Prone Exercise Name JUDY Reps/Minutes 60 x 2 Manual Therapy Treatment Soft Tissue Mobilization Scar Mob Body Location Lower abdominal scar mob Mobilization Type Myofascial Release,Sustained Pressure Intensity/Depth Moderate Body Position Supine PF: 3-6 O'Clock Body Location PF 3-6 O'Clock Mobilization Type Myofascial Release Intensity/Depth Moderate Body Position Hooklying PSIS/Ischial tub Body Location Ischial Tub rebalancing Mobilization Type Sustained Pressure Intensity/Depth Moderate Body Position Supine Abdomen Body Location Abdomen/Bladder region and R Oblique stretching Mobilization Type Myofascial Release,Sustained Pressure Intensity/Depth Moderate Body Position Supine Comments Decreased tissue mobility of abdomen with L>R. No c/o of tenderness at L SIJ. PT-OP-T Assessment and Plan Start: 10/07/20 17:40 Freq: Status: Active Protocol: Document 11/18/20 15:03 LRN (Rec: 11/18/20 16:03 LRN [id number]) Physical Therapy Assessment Goals Four Impairment Pain with intercourse. Short Term Goal (STG) Normalize soft tissue mobility of L abdominal region & improve trunk flexor mobility with pt independent on a self care stretch program and educated in modifications to positioning to minimize pain. (10/20/20: Pt educated in modifications to positioning to minimize pain, and started on HEP of abdominal and trunk flexor mobility ex's) (11/03/20: HEP: self trunk rotation manual stretch) STG Duration 12/02/20 (11/10/20: Progressing towards norm STM) Care Home Goal (LTG) No pain with sexual intercourse. LTG Duration 01/11/21 Three Impairment Decreased hip strength (ER: 3/ 5 L, 5/5 R; Adduction 5/5 L, 3 /5 R) Short Term Goal (STG) Hip strength is generally 5/5 bilaterally STG Duration 12/02/20 Joiner Goal (LTG) Improved L hip/SIJ stability with decrease of L hip pain no greater than 1/10. LTG Duration 01/11/21 Two Impairment Intermittent L LBP/SIJ pain with prolonged standing (rated 3/10) Impairment Initial hip mobility: ER is 55 deg's left, 50 deg's right; IR 60 deg's bilaterally. Short Term Goal (STG) Pt will demonstrate improved hip ER mobility. STG Duration 12/02/20 Care Home Goal (LTG) Pt will be able to stand for long periods (like at work) and not have to sit down due to pain. LTG Duration 01/11/21 One Impairment Pt lacks an independent self care HEP. Short Term Goal (STG) Pt will be educated in self bowel massage. STG Duration 10/28/20 (11/10/20: MET GOAL) Joiner Goal (LTG) Pt will be independent in a self care HEP. LTG Duration 01/11/21 (11/03/20: Progressed) Assessment Summary Assessment Pt has good recall HEP hip stretches. L hip and PF is tight per internal palpation of OI & PF. Pt had no complaint of pain at end of insertion of examining finger. Pt will need to check with her personal product to see if possible end pain with intercourse. Further stretch to lower abdomin, ?Bladder, Cervix Physical Therapy Plan Frequency and Duration Frequency of Treatment 1x/Week Plan of Care Start Date 10/13/20 Plan of Care End Date 01/11/21 Next Visit Focus/Plan Next Note Type Treatment Note Next Visit Plan Check Hip mobility and strength. Recheck Sacrum (2 step correction) & Ischium/Ilium rebalancing. Intravaginal Protocol & lower abdominal techniques. Assess PFM, Bladder, Cervix for drop of organs, causing end thrust pain with intercourse. PFM w /pelvic bones externally & EAS . Core activation (lower abdominal ex, review planks). Add sitting trunk R rot active (stretch lateral trunk). Progress to upward dog abdominal stretch (modify HEP if needed). Review self care HEP deep breathing. Add HEP: hip strengthening ER & AD. STM of abdomen, fascia of bladder, intestines. LB/SIJ/Pelvic stabilization, review planks.
--- NOTE | 2020-11-29 16:21 | PT.OTN ---
Current Diagnoses Constipation, unspecified (11/29/20) Pain in left hip (11/29/20) Muscle weakness (generalized) (11/29/20) Other specified disorders of muscle (11/29/20) Pelvic and perineal pain (11/29/20) Physical Therapy Treatment Note PT-OP-A Visit Information Start: 10/07/20 17:40 Freq: Status: Active Protocol: Document 11/29/20 15:24 LRN (Rec: 11/29/20 16:18 LRN [id number]) Out-Patient Physical Therapy Visit Information Visit Information Visit Type Treatment Note Visit Start Time 15:24 Visit Stop Time 15:55 Total Visit Minutes 31 Visit Number 6 Evaluation Information Evaluation Date 10/13/20 Precautions Precautions Per pt: Cancer history of R mastectomy with reconstructive surgery. Uterus removed PT-OP-B Current Condition Start: 10/07/20 17:40 Freq: Status: Active Protocol: Document 10/13/20 08:12 LRN (Rec: 10/13/20 09:03 LRN [id number]) Current Condition History of Current Condition Onset Date 06/2020 (4 months ago) Current Complaints Intermittent L LBP History of Current Condition Low L back pain and vaginal pain during sex, pain with deep thrust, and possibly some insertion. Pain in low back is intermittent, sometimes when bowels are full. 1 yr ago noticed pain with sex. No children 6 ectopic pregnancies. Exercises a couple times a week and random exercise. Prior Treatments and Tests None Developmental History Developmental History 6 ectopic pregnancies. 2018 -R Mastectomy, reconstruction in 2019 using adipose from lower abdomen, muscles not as strong. Treatment Goals Patient/Caregiver Goals Pt goal is sex without pain and stand all day at work and not have to sit down. 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 Sometimes had to sit to make it feel better. Current Functional Impairments (Reported) Functional Limitations- ADL's Sometimes had to sit at work due to LBP. Painful sex. Personal Factors Other Personal Factors That May Effect Per pt: Therapy/Recovery Cancer, R Mastectomy - 2018 with reconstructive surgery 2019. Uterus removed Hypothyroid controlled by medications. PT-OP-C Subjective Start: 10/07/20 17:40 Freq: Status: Active Protocol: Document 11/29/20 15:24 LRN (Rec: 11/29/20 16:18 LRN [id number]) OP-PT Subjective Patient Comments Patient Comments States she used a tool in vagina and the pain was on insertion. PT-OP-F Manual Assessment Start: 10/07/20 17:40 Freq: Status: Active Protocol: Document 10/13/20 08:12 LRN (Rec: 10/13/20 09:03 LRN [id number]) Manual Assessments Soft Tissue Assessment Soft Tissue Mobility Assessment Decreased muscle tone of L gluteals Tender at L SIJ & L Sacral border. PT-OP-I Pelvic Floor Start: 10/07/20 17:40 Freq: Status: Active Protocol: Document 10/13/20 08:12 LRN (Rec: 10/13/20 09:03 LRN [id number]) Pelvic Floor Assessment Urine Pelvic Floor Surgery No Other Urinary Symptoms 8-10 times urinate per day [place] Per Day None Bowel Bowel Surgery No Bowel Symptoms Constipation Other Bowel Symptoms If not taking probiotics have constipation. Bowel Movement Frequency 5-7x/week, from vacation didn' t have one for 5 days. [place] Stool Chart Type 1-7 4 Pelvic Clock Pelvic Clock 12-3 Tightness Pelvic Clock 3-6 Tightness PT-OP-J Posture/Palpation/Skin Start: 10/07/20 17:40 Freq: Status: Active Protocol: Document 10/13/20 08:12 LRN (Rec: 10/13/20 09:03 LRN [id number]) Posture Evaluation Position Standing T-Spine Posture Flattened Shoulder Posture (R) Elevated Pelvis Posture Anteriorly Tilted Weight Distribution Balanced Hip Posture (L) Neutral,(R) Neutral Ankle/Foot Posture (L) Neutral,(R) Neutral Foot Arch (L) Medium Arch,(R) Medium Arch Comments Posture Comments Decreased upper T/S curvature, outflare L ileum, level breasts. PT-OP-K Range of Motion Start: 10/07/20 17:40 Freq: Status: Active Protocol: Document 11/29/20 15:24 LRN (Rec: 11/29/20 16:18 LRN [id number]) Hip Goniometric Range of Motion Hip Right Passive Testing Position Supine Internal Rotation 60 External Rotation 70 Left Passive Testing Position Supine Internal Rotation 45 External Rotation 75 PT-OP-M Strength Start: 10/07/20 17:40 Freq: Status: Active Protocol: Document 10/13/20 08:12 LRN (Rec: 10/13/20 09:03 LRN [id number]) Trunk Strength Trunk Manual Muscle Testing Testing Position All positions during LE MMT Core Stabilization Weak R lateral trunk & R>L rotation. Hip Strength Hip Manual Muscle Testing Right Flexion (L2) 5 Normal Extension (S1) 5 Normal Abduction 5 Normal Adduction 3 Fair External Rotation 5 Normal Internal Rotation 5 Normal Left Flexion (L2) 5 Normal Extension (S1) 4 Good Abduction 5 Normal Adduction 5 Normal External Rotation 3 Fair Internal Rotation 5 Normal PT-OP-Q Treatments Start: 10/07/20 17:40 Freq: Status: Active Protocol: Document 11/29/20 15:24 LRN (Rec: 11/29/20 16:18 LRN [id number]) Therapeutic Exercises Supine Exercises PF (2-6 O'Clock) stretch Supine Exercise Name I/S pt in self stretch with small dilator Comments I/S given with visual feedback provided with hand held m Hip ER stretch Supine Exercise Name Lateral hip stretch Side left Reps/Minutes 60 stretch: 2x left Comments Extra time needed for training with Physical & v cuing. Piriformis stretch Supine Exercise Name Knee to opposite shoulder & pt also shown cross over leg stretch. Side left Reps/Minutes 60 stretch: 2x left Comments Extra time needed for training with Physical & v cuing. Manual Therapy Treatment Soft Tissue Mobilization Scar Mob Body Location Lower abdominal scar mob Mobilization Type Myofascial Release,Sustained Pressure Intensity/Depth Moderate Body Position Supine Comments Left side of scar mobility decreased. PF: 3-6 O'Clock Body Location PF 2-6 O'Clock Mobilization Type Myofascial Release Intensity/Depth Moderate Body Position Hooklying Comments Tight 2-6 O'clock of PF. Abdomen Body Location Abdomen/Bladder region and R Oblique stretching Mobilization Type Myofascial Release,Sustained Pressure Intensity/Depth Moderate Body Position Supine Comments Decreased tissue mobility of abdomen with L>R. No c/o of tenderness at L SIJ. PT-OP-T Assessment and Plan Start: 10/07/20 17:40 Freq: Status: Active Protocol: Document 11/29/20 15:24 LRN (Rec: 11/29/20 16:18 LRN [id number]) Physical Therapy Assessment Goals Four Impairment Pain with intercourse. Short Term Goal (STG) Normalize soft tissue mobility of L abdominal region & improve trunk flexor mobility with pt independent on a self care stretch program and educated in modifications to positioning to minimize pain. (10/20/20: Pt educated in modifications to positioning to minimize pain, and started on HEP of abdominal and trunk flexor mobility ex's) (11/03/20: HEP: self trunk rotation manual stretch) STG Duration 12/02/20 (11/10/20: Progressing towards norm STM) [employer] Goal (LTG) No pain with sexual intercourse. LTG Duration 01/11/21 Three Impairment Decreased hip strength (ER: 3/ 5 L, 5/5 R; Adduction 5/5 L, 3 /5 R) Short Term Goal (STG) Hip strength is generally 5/5 bilaterally STG Duration 12/02/20 Care Home Goal (LTG) Improved L hip/SIJ stability with decrease of L hip pain no greater than 1/10. LTG Duration 01/11/21 Two Impairment Intermittent L LBP/SIJ pain with prolonged standing (rated 3/10) Impairment Initial hip mobility: ER is 55 deg's left, 50 deg's right; IR 60 deg's bilaterally. Short Term Goal (STG) Pt will demonstrate improved hip ER mobility. (11/29/20: Passive Hip ER is 75 deg's left, 70 deg's right; Hip IR is 45 deg's left, 60 deg's right) STG Duration 12/02/20 (11/29/20: MET GOAL) [employer] Goal (LTG) Pt will be able to stand for long periods (like at work) and not have to sit down due to pain. LTG Duration 01/11/21 One Impairment Pt lacks an independent self care HEP. Short Term Goal (STG) Pt will be educated in self bowel massage. STG Duration 10/28/20 (11/10/20: MET GOAL) Care Home Goal (LTG) Pt will be independent in a self care HEP. (11/29/20: Pt issued small dilator for stretch to 2-6 O' Clock of PF). LTG Duration 01/11/21 (11/29/20: Progressed) Assessment Summary Assessment Pt has good hip ER mobility bilaterally, but hip IR is tight on left. Her PF is tight on left (2-6 of PF O' Clock). With internal palpation the end of cervix was not palpable; therefore no pain was noted. The pt noted insertional and end range pain with use of home vaginal stimulator, possibly due to lack of use of gel. The pt Physical Therapy Plan Frequency and Duration Frequency of Treatment 1x/Week Plan of Care Start Date 10/13/20 Plan of Care End Date 01/11/21 Next Visit Focus/Plan Next Note Type Treatment Note Next Visit Plan Check Hip IR mobility and strength, and (goal 4) soft tissue mobility of L abdominal region & improve trunk flexor mobility. Review self care HEP deep breathing. Intravaginal Protocol & lower abdominal techniques. Assess Bladder, Cervix for drop of organs, causing end thrust pain with intercourse. Add sitting trunk R rot active (stretch lateral trunk). Progress to upward dog abdominal stretch (modify HEP if needed). Add HEP: hip strengthening ER & AD. STM of abdomen, fascia of bladder, intestines. LB/SIJ/Pelvic stabilization, Core activation (lower abdominal ex, review planks). Recheck Sacrum (2 step correction) & Ischium/Ilium rebalancing.
--- NOTE | 2020-12-16 16:50 | PT.OTN ---
Current Diagnoses Constipation, unspecified (12/16/20) Pain in left hip (12/16/20) Muscle weakness (generalized) (12/16/20) Other specified disorders of muscle (12/16/20) Pelvic and perineal pain (12/16/20) Physical Therapy Treatment Note PT-OP-A Visit Information Start: 10/07/20 17:40 Freq: Status: Active Protocol: Document 12/16/20 09:49 LRN (Rec: 12/16/20 11:17 LRN [id number]) Out-Patient Physical Therapy Visit Information Visit Information Visit Type Treatment Note Visit Start Time 09:00 Visit Stop Time 09:49 Total Visit Minutes 49 Visit Number 2 Evaluation Information Evaluation Date 10/13/20 Precautions Precautions Per pt: Cancer history of R mastectomy with reconstructive surgery. Uterus removed PT-OP-B Current Condition Start: 10/07/20 17:40 Freq: Status: Active Protocol: Document 10/13/20 08:12 LRN (Rec: 10/13/20 09:03 LRN [id number]) Current Condition History of Current Condition Onset Date 06/2020 (4 months ago) Current Complaints Intermittent L LBP History of Current Condition Low L back pain and vaginal pain during sex, pain with deep thrust, and possibly some insertion. Pain in low back is intermittent, sometimes when bowels are full. 1 yr ago noticed pain with sex. No children 6 ectopic pregnancies. Exercises a couple times a week and random exercise. Prior Treatments and Tests None Developmental History Developmental History 6 ectopic pregnancies. 2018 -R Mastectomy, reconstruction in 2019 using adipose from lower abdomen, muscles not as strong. Treatment Goals Patient/Caregiver Goals Pt goal is sex without pain and stand all day at work and not have to sit down. 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 Sometimes had to sit to make it feel better. Current Functional Impairments (Reported) Functional Limitations- ADL's Sometimes had to sit at work due to LBP. Painful sex. Personal Factors Other Personal Factors That May Effect Per pt: Therapy/Recovery Cancer, R Mastectomy - 2018 with reconstructive surgery 2019. Uterus removed Hypothyroid controlled by medications. PT-OP-C Subjective Start: 10/07/20 17:40 Freq: Status: Active Protocol: Document 12/16/20 09:49 LRN (Rec: 12/16/20 11:17 LRN [id number]) OP-PT Subjective Patient Comments Patient Comments Pt used her personal vaginal stretcher and found less pain at end-range making it tolerable for sexual intercourse. Pt has questions regarding maintaining current condition. L hip pain present if stands a long time. Patient Questionnaires Pelvic Pain and Urgency/Frequency Patient Symptom Scale Pelvic Pain Score 6 OP-PT Pain Assessment Pain Assessment Grid Paper Pain Assessment Grid Completed Yes Location Pelvic Floor Pain Location Details Pelvic Floor Intensity 0 Scale Used Numeric (0 - 10) L LBP Pain Location Details L LB/Hip Intensity 1 Scale Used Numeric (0 - 10) PT-OP-F Manual Assessment Start: 10/07/20 17:40 Freq: Status: Active Protocol: Document 10/13/20 08:12 LRN (Rec: 10/13/20 09:03 LRN [id number]) Manual Assessments Soft Tissue Assessment Soft Tissue Mobility Assessment Decreased muscle tone of L gluteals Tender at L SIJ & L Sacral border. PT-OP-I Pelvic Floor Start: 10/07/20 17:40 Freq: Status: Active Protocol: Document 10/13/20 08:12 LRN (Rec: 10/13/20 09:03 LRN [id number]) Pelvic Floor Assessment Urine Pelvic Floor Surgery No Other Urinary Symptoms 8-10 times urinate per day [place] Per Day None Bowel Bowel Surgery No Bowel Symptoms Constipation Other Bowel Symptoms If not taking probiotics have constipation. Bowel Movement Frequency 5-7x/week, from vacation didn' t have one for 5 days. [place] Stool Chart Type 1-7 4 Pelvic Clock Pelvic Clock 12-3 Tightness Pelvic Clock 3-6 Tightness PT-OP-J Posture/Palpation/Skin Start: 10/07/20 17:40 Freq: Status: Active Protocol: Document 10/13/20 08:12 LRN (Rec: 10/13/20 09:03 LRN [id number]) Posture Evaluation Position Standing T-Spine Posture Flattened Shoulder Posture (R) Elevated Pelvis Posture Anteriorly Tilted Weight Distribution Balanced Hip Posture (L) Neutral,(R) Neutral Ankle/Foot Posture (L) Neutral,(R) Neutral Foot Arch (L) Medium Arch,(R) Medium Arch Comments Posture Comments Decreased upper T/S curvature, outflare L ileum, level breasts. PT-OP-K Range of Motion Start: 10/07/20 17:40 Freq: Status: Active Protocol: Document 11/29/20 15:24 LRN (Rec: 11/29/20 16:18 LRN [id number]) Hip Goniometric Range of Motion Hip Right Passive Testing Position Supine Internal Rotation 60 External Rotation 70 Left Passive Testing Position Supine Internal Rotation 45 External Rotation 75 PT-OP-M Strength Start: 10/07/20 17:40 Freq: Status: Active Protocol: Document 12/16/20 09:49 LRN (Rec: 12/16/20 16:40 LRN [id number]) Hip Strength Hip Manual Muscle Testing Right External Rotation 4 Good Internal Rotation 4 Good Comments Generally 5/5 except as noted above. Left External Rotation 4 Good Internal Rotation 4 Good Comments Generally 5/5 except as noted above. PT-OP-Q Treatments Start: 10/07/20 17:40 Freq: Status: Active Protocol: Document 12/16/20 09:49 LRN (Rec: 12/16/20 11:17 LRN [id number]) Therapeutic Exercises Supine Exercises Hip IR/ER Supine Exercise Name Adriana & ARROM Side bilateral Reps/Minutes 6' Comments Issued Lev 2 TB after exercise training Hip Flex Supine Exercise Name Hip Flex Side bilateral Comments MMT taken KTC stretch Supine Exercise Name KTC stretch Side left Reps/Minutes 60 stretch: 2x left Hip ER stretch Supine Exercise Name Lateral hip stretch Side left Reps/Minutes 60 stretch: 2x left Comments Extra time needed for training with Physical & v cuing. Piriformis stretch Supine Exercise Name Knee to opposite shoulder & pt also shown cross over leg stretch. Side left Reps/Minutes 60 stretch: 2x left Comments Extra time needed for training with Physical & v cuing. Prone Exercises Hip Ext Prone Exercise Name Hip EXT Side bilateral Comments MMT Abdominal stretch Prone Exercise Name JUDY stretch Reps/Minutes 3' Sidelying Exercises Hip AB/AD Sidelying Exercise Name Hip AB/AD Side bilateral Comments MMT Manual Therapy Treatment Soft Tissue Mobilization Scar Mob Body Location Lower abdominal scar mob and self care training Mobilization Type Sustained Pressure Intensity/Depth Superficial Body Position Supine Comments Pt needed phys & verbal cuing to improve awareness of self care for STM. PF: 3-6 O'Clock Body Location PF 2-6 O'Clock Mobilization Type Myofascial Release Intensity/Depth Moderate Body Position Hooklying Comments Tight 2-6 O'clock of PF. Abdomen Body Location Abdomen/Cervix region and R Oblique stretching Mobilization Type Myofascial Release,Sustained Pressure Intensity/Depth Moderate Body Position Supine Comments Decreased tissue mobility of abdomen with L>R. No c/o of tenderness at L SIJ. Self-Care/Home Management Treatment Education Patient Education Home Exercise Program Other Education Discussed at length self care for minimizing pelvic organ descent during transfers and exercise, incorporating breathing and PF contraction methods. Activities Self-Care/Home Management Activities Issued & reviewed HEP of hip IR/ER strengthening with LEv 2 TB issued. PT-OP-T Assessment and Plan Start: 10/07/20 17:40 Freq: Status: Active Protocol: Document 12/16/20 09:49 LRN (Rec: 12/16/20 11:17 LRN [id number]) Physical Therapy Assessment Goals Four Impairment Pain with intercourse. Short Term Goal (STG) Normalize soft tissue mobility of L abdominal region & improve trunk flexor mobility with pt independent on a self care stretch program and educated in modifications to positioning to minimize pain. (10/20/20: Pt educated in modifications to positioning to minimize pain, and started on HEP of abdominal and trunk flexor mobility ex's) (11/03/20: HEP: self trunk rotation manual stretch) STG Duration 12/02/20 (12/16/20: MET GOAL) [facility] Goal (LTG) No pain with sexual intercourse. LTG Duration 01/11/21 (12/16/20: MET GOAL to patient's satisfaction) Three Impairment Decreased hip strength (ER: 3/ 5 L, 5/5 R; Adduction 5/5 L, 3 /5 R) Short Term Goal (STG) Hip strength is generally 5/5 bilaterally STG Duration 12/02/20 (12/16/20: MET GOAL) [facility] Goal (LTG) Improved L hip/SIJ stability with decrease of L hip pain no greater than 1/10. (12/16/20: No L hip pain unless standing >5-6 hrs, rated 4/10) LTG Duration 01/11/21 (12/16/20: MET GOAL) Two Impairment Intermittent L LBP/SIJ pain with prolonged standing (rated 3/10) Impairment Initial hip mobility: ER is 55 deg's left, 50 deg's right; IR 60 deg's bilaterally. Short Term Goal (STG) Pt will demonstrate improved hip ER mobility. (11/29/20: Passive Hip ER is 75 deg's left, 70 deg's right; Hip IR is 45 deg's left, 60 deg's right) STG Duration 12/02/20 (11/29/20: MET GOAL) [facility] Goal (LTG) Pt will be able to stand for long periods (like at work) and not have to sit down due to pain. LTG Duration 01/11/21 (12/16/20: MET GOAL) One Impairment Pt lacks an independent self care HEP. Short Term Goal (STG) Pt will be educated in self bowel massage. STG Duration 10/28/20 (11/10/20: MET GOAL) [facility] Goal (LTG) Pt will be independent in a self care HEP. (11/29/20: Pt issued small dilator for stretch to 2-6 O' Clock of PF). LTG Duration 01/11/21 (12/16/20: MET GOAL) Assessment Summary Assessment Pt has done very well with therapy. Her Pelvic Pain & Urgency/Frequency Symptom Scale was initially 14 and is no 6. She has not been able to identify if she will have PF pain with sexual intercourse, but through instrument stretching feels it will not be a problem. Her hip rotation mobility has improved bilaterally is is becoming more symmetrical. She is independent with a self care HEP of stretches and has been educated in proper breathing and movement techniques to limit descent of her organs and therefore minimizing possible onset of pain with intercourse. The pt is ready to be discharged and placed on a home exercise program. Physical Therapy Plan Discharge Physical Therapy Discharge Reasons Goals Met Discharge Comments Thank you for your referral
== END 2020-12-16 11:27 ==
LOC: PHYS 09:00
PROVIDERS: Family Provider Specialist; PCP Specialist; Referring Provider Specialist; Visit Provider Specialist
DX: M62.89 Other specified disorders of muscle (principal); R10.2 Pelvic and perineal pain; M62.81 Muscle weakness (generalized); M25.552 Pain in left hip; K59.00 Constipation, unspecified
CPT/HCPCS: 97110; 97140; 97162; 97535